=== PATIENT | female | born 1985 | race African-American/Black ===

== ENCOUNTER 2017-10-02 10:36 | Emergency (ER) | payer BC ==
[~2017-10-02] VITALS: Ht 162.6 cm; Wt 72.3 kg
[~2017-10-02 10:36] MED LIST: ALBUTEROL SULF8.5 GM IH; FLEXERIL10 MG PO; Feosol PO; IBUPROFEN800 MG PO; MOTRIN600 MG PO; Motrin PO; NAPROSYN500 MG PO; NATALCARE RX1 TABLET PO; PREDNISONE20 MG PO; PROMETHAZINE HC25 M1; TYLENOL EXTRA500 MG PO; ~No Medications
[2017-10-02 11:46] LABS: HEMATOCRIT 35.7 % (36.0-46.0); HEMOGLOBIN 11.8 G/DL (11.9-15.5); MCH 27.2 PG (29.0-34.0); MCHC 33.1 G/DL (30.0-36.0); MCV 82.3 FL (83-99); RBC DIS.WIDTH-CV 14.2 % (11.8-14.6); RBC DIS.WIDTH-SD 42.1 % (39-53); RED BLOOD COUNT 4.34 M/uL (3.80-5.20); WHITE BLOOD COUNT 8.2 K/uL (4.1-10.2)
[2017-10-02 12:28] LABS: PLAT.SUFFICIENCY ADEQUATE; PLATELET COUNT 186 K/uL (156-360)
[2017-10-02 13:24] LABS: APPEARANCE CLOUDY ((CLEAR)); BILIRUBIN NEGATIVE; BLOOD NEGATIVE; COLOR YELLOW ((YELLOW)); GLUCOSE (STRIP) NEGATIVE; KETONES 5; LEUKOCYTES SMALL; NITRITE NEGATIVE; PROTEIN (STRIP) 30; SPECIFIC GRAVITY 1.027 (1.000-1.030); UROBILINOGEN 0.2 MG/DL (0.2-1.0)
[2017-10-02 13:39] LABS: BACTERIA RARE /HPF; EPITHELIAL CELLS 1+ /HPF; MUCUS RARE /LPF; RED BLOOD CELLS 0-5 /HPF (0-5); UCUL ADDED? NO; WHITE BLOOD CELLS 0-5 /HPF (0-5)
[2017-10-02 14:57] VITALS: BP 119/78
== END 2017-10-02 14:58 | disposition home or self-care (01) ==
LOC: EME 10:36
DX: O20.0 Threatened abortion (principal); Z3A.01 Less than 8 weeks gestation of pregnancy
CPT/HCPCS: 76801; 81003; 84702; 85027; 99281; 99283

== ENCOUNTER 2017-10-09 11:14 | Day surgery (SDC) | payer BC ==
[~2017-10-09] VITALS: Ht 162.6 cm; Wt 73.0 kg
[2017-10-09 11:44] VITALS: BP 109/68
[2017-10-09] MEDS ORDERED: IBUPROFEN800 MG PO (12:45)
[2017-10-09 13:50] VITALS: BP 131/60
== END 2017-10-09 14:15 | disposition home or self-care (01) ==
LOC: SDC 11:14
PROC: 10D17ZZ Extraction of Products of Conception, Retained, Via Natural or Artificial Opening (ICD-10-PCS; principal; 2017-10-09)
DX: O02.1 Missed abortion (principal)
CPT/HCPCS: 86850; 86900; 86901; 88305; J0330; J2250; J3010